=== PATIENT | female | born 1995 | race Caucasian/White ===

== ENCOUNTER 2016-07-18 17:03 | Emergency (ER) | payer OTHER ==
[~2016-07-18 17:03] MED LIST: AMOXICILLIN875 MG PO; BACTRIM DS TABL1 TA1 PO; MAGIC MOUTHWASH PO; NO MEDICATIONS
== END 2016-07-18 17:15 | disposition left against medical advice (07) ==
LOC: SED 17:03
DX: Z53.21 Procedure and treatment not carried out due to patient leaving prior to being seen by health care provider (principal)

== ENCOUNTER 2016-11-13 16:08 | Emergency (ER) | payer OTHER | END 2016-11-13 17:57 | disposition home or self-care (01) | LOC: SED 16:08 | DX: S50.362A Insect bite (nonvenomous) of left elbow, initial encounter (principal); S50.361A Insect bite (nonvenomous) of right elbow, initial encounter; S90.862A Insect bite (nonvenomous), left foot, initial encounter; S00.86XA Insect bite (nonvenomous) of other part of head, initial encounter; S30.861A Insect bite (nonvenomous) of abdominal wall, initial encounter; S30.860A Insect bite (nonvenomous) of lower back and pelvis, initial encounter; F17.210 Nicotine dependence, cigarettes, uncomplicated; Z79.899 Other long term (current) drug therapy; W57.XXXA Bitten or stung by nonvenomous insect and other nonvenomous arthropods, initial encounter; Y92.009 Unspecified place in unspecified non-institutional (private) residence as the place of occurrence of the external cause | CPT/HCPCS: 99282 ==